=== PATIENT | female | born 1970 | race Caucasian/White ===

== ENCOUNTER → 2016-12-20 | Outpatient (CLI) | payer BC ==
--- NOTE | 2016-12-20 17:09 | DIAGNOSTIC IMAGING REPORT ---
RIGHT FOOT MIN 3 VIEWS ROUTINE CLINICAL HISTORY: Right foot pain. Plantar fasciitis. COMPARISON: None FINDINGS: There is a bipartite medial sesamoid of the great toe. Tarsometatarsal joints are intact. There is no acute fracture. There is mild plantar and moderate posterior calcaneal spurring. No erosions are identified. Joint spaces are preserved. IMPRESSION: 1. Mild plantar and moderate posterior calcaneal spurring. 2. No fracture. 3. Minimal degenerative changes within the midfoot. Electronically signed by: Arthur Mulligan M.D. 12/20/2016 5:07 PM Dictated Date/Time: 12/20/2016 5:05 PM
== END | disposition home or self-care (01) ==
LOC: C.RADBC 16:42
PROVIDERS: ATTEND Nurse Practitioner Family
DX: M72.2 Plantar fascial fibromatosis (principal); M77.31 Calcaneal spur, right foot

== ENCOUNTER → 2017-05-29 | Outpatient (CLI) | payer BC ==
--- NOTE | 2017-05-29 12:04 | DIAGNOSTIC IMAGING REPORT ---
LEFT KNEE 1 OR 2 VIEWS ROUTINE HISTORY: 47-year-old female presents with left knee pain, swelling and bruising. COMPARISON: Left knee radiographs 11/06/2012. TECHNIQUE: Frontal and lateral views of the left knee. FINDINGS: There is no acute fracture or dislocation. Mild to moderate medial and lateral compartment osteoarthritis is present with progressive moderate osteoarthritis of the femoral acetabular joint with prominent marginal spurring. There is no large joint effusion or radiopaque foreign body. IMPRESSION: 1. No acute fracture or dislocation. 2. Progressive osteoarthritis about the knee, most advanced within the patellofemoral joint where there is moderate disease. Electronically signed by: Yohan Fischer 05/29/2017 12:03 PM Dictated Date/Time: 05/29/2017 12:01 PM
== END | disposition home or self-care (01) ==
LOC: C.RADBC 11:47
PROVIDERS: ATTEND Nurse Practitioner
DX: S80.02XA Contusion of left knee, initial encounter (principal); X58.XXXA Exposure to other specified factors, initial encounter; R58 Hemorrhage, not elsewhere classified; M25.562 Pain in left knee; M17.12 Unilateral primary osteoarthritis, left knee